=== PATIENT | female | born 1985 | race Caucasian/White ===

== ENCOUNTER 2017-03-22 13:26 | Emergency (ER) | payer OTHER, BC ==
[~2017-03-22] VITALS: Ht 167.6 cm; Wt 65.8 kg
[2017-03-22 13:48] VITALS: BP 118/71
--- NOTE | 2017-03-22 15:15 | RAD ---
Indication: Bilateral wrist pain shooting down both arms. No known injury. Technique: 3 views of each wrist are submitted for review. No comparison is available. Findings: There is no fracture or dislocation. There is no soft tissue swelling. Both lateral films are slightly obliqued limiting their utility. Impression: Negative for fracture.
--- NOTE | 2017-03-22 15:22 | PHYS DOC ---
Past Medical History Past Medical History: No Pertinent History Past Surgical History: No Surgical History Alcohol Use: None Drug Use: None Adult General Chief Complaint Chief Complaint: WRIST PAIN HPI HPI Patient is a 32 year old female who presents with bilateral wrist pain with radiation and intermittent numbness and tingling. The right wrist is worse than the left. The patient has not taken medication for this issue. Review of Systems Review of Systems Constitutional: Denies fever or chills [] Eyes: Denies change in visual acuity, redness, or eye pain [] HENT: Denies nasal congestion or sore throat [] Respiratory: Denies cough or shortness of breath [] Cardiovascular: No additional information not addressed in HPI [] GI: Denies abdominal pain, nausea, vomiting, bloody stools or diarrhea [] : Denies dysuria or hematuria [] Musculoskeletal: Denies back pain or joint pain [] Integument: Denies rash or skin lesions [] Neurologic: Denies headache, focal weakness or sensory changes [] Endocrine: Denies polyuria or polydipsia [] All other systems were reviewed and found to be within normal limits, except as documented in this note. Allergies Allergies Allergies Coded Allergies Type Severity Reaction Last Updated Verified Penicillins Allergy Intermediate "RASH" 03/22/17 No Physical Exam Physical Exam Constitutional: Well developed, well nourished, no acute distress, non-toxic appearance. [] Cardiovascular:Heart rate regular rhythm, no murmur [] Lungs & Thorax: Bilateral breath sounds clear to auscultation [] Skin: Warm, dry, no erythema, no rash. [] Extremities: tenderness to bilateral wrists, no cyanosis, no clubbing, ROM intact, no edema. [] Neurologic: Alert and oriented X 3, normal motor function, normal sensory function, no focal deficits noted. [] Psychologic: Affect normal, judgement normal, mood normal. [] Current Patient Data Vital Signs Vital Signs Date Time Temp Pulse Resp B/P (MAP) Pulse Ox O2 Delivery O2 Flow Rate FiO2 03/22/17 13:48 98.4 71 17 100 Room Air 98.4 EKG EKG [] Radiology/Procedures Radiology/Procedures []PATIENT: JOHNNY BUCHANAN ACCOUNT: [id number] : 1985 LOCATION: ER AGE: 32 SEX: F EXAM STATUS: REG ER ORD. PHYSICIAN: DELFINO HER APRN REASON: increasing pain PROCEDURE: WRIST BILAT 3V Indication: Bilateral wrist pain shooting down both arms. No known injury. Technique: 3 views of each wrist are submitted for review. No comparison is available. Findings: There is no fracture or dislocation. There is no soft tissue swelling. Both lateral films are slightly obliqued limiting their utility. Impression: Negative for fracture. DICTATED and SIGNED BY: VAUGHN ARVIZU MD DATE: 03/22/17 1510 CC: DELFINO HER APRN; NO PCP; NON,STAFF ~ Course & Med Decision Making Course & Med Decision Making Pertinent Labs and Imaging studies reviewed. (See chart for details) []1. Wrist pain You need to follow-up with your workman's comp physician for evaluation of carpal tunnel syndrome. You may use ibuprofen or Tylenol for pain. If worsening return to the ED. Dragon Disclaimer Dragon Disclaimer This electronic medical record was generated, in whole or in part, using a voice recognition dictation system. Departure Departure Referrals: NO PCP (PCP) DELFINO HER APRN Mar 22, 2017 15:22
== END 2017-03-22 15:29 | disposition home or self-care (01) ==
LOC: ER 13:26
DX: M25.531 Pain in right wrist (principal); M25.532 Pain in left wrist; R20.0 Anesthesia of skin; R20.2 Paresthesia of skin; Z88.0 Allergy status to penicillin
CPT/HCPCS: 73110; 99284

== ENCOUNTER 2019-05-01 11:59 | Emergency (ER) | payer BC, OTHER ==
[2019-05-01 12:25] VITALS: BP 122/70
[2019-05-01] MEDS ORDERED: METH4TAB2 PO (13:22)
[2019-05-01] MEDS ORDERED: ALBU2.5V8 INH (13:22)
[2019-05-01] MEDS ORDERED: BENZ100C PO (13:22)
--- NOTE | 2019-05-01 13:23 | PHYS DOC ---
Past Medical History Past Medical History: Other Additional Past Medical Histor: ADHD Past Surgical History: No Surgical History Additional Information: 1 PACK/DAY Alcohol Use: None Drug Use: None Adult General Chief Complaint Chief Complaint: COUGH HPI HPI Patient is a 34 year old female who presents with cough 5 days and states after she coughs she feels short of breath. She states she gets hot flashes. She denies fever. States she is taking NyQuil couple times. She states she smokes a pack a day. She denies any past medical history. Review of Systems Review of Systems Respiratory: cough or shortness of breath [] All other systems were reviewed and found to be within normal limits, except as documented in this note. Allergies Allergies Allergies Coded Allergies Type Severity Reaction Last Updated Verified Penicillins Allergy Intermediate "RASH" 03/22/17 No Physical Exam Physical Exam Constitutional: Well developed, well nourished, no acute distress, non-toxic appearance. [] HENT: Normocephalic, atraumatic, bilateral external ears normal, oropharynx moist, no oral exudates, nose normal. Throat red with post nasal drip. [] Eyes: PERRLA, EOMI, conjunctiva normal, no discharge. [] Neck: Normal range of motion, no tenderness, supple, no stridor. [] Cardiovascular:Heart rate regular rhythm, no murmur [] Lungs & Thorax: Bilateral breath sounds clear to auscultation [] Abdomen: Bowel sounds normal, soft, no tenderness, no masses, no pulsatile masses. [] Skin: Warm, dry, no erythema, no rash. [] Back: No tenderness, no CVA tenderness. [] Extremities: No tenderness, no cyanosis, no clubbing, ROM intact, no edema. [] Neurologic: Alert and oriented X 3, normal motor function, normal sensory function, no focal deficits noted. [] Psychologic: Affect normal, judgement normal, mood normal. [] Current Patient Data Vital Signs Vital Signs Date Time Temp Pulse Resp B/P (MAP) Pulse Ox O2 Delivery O2 Flow Rate FiO2 05/01/19 12:25 98.5 91 18 122/70 (87) 98 Room Air 98.5 EKG EKG [] Radiology/Procedures Radiology/Procedures [] Course & Med Decision Making Course & Med Decision Making Vital signs within normal limits. Alert and oriented. Speaks in full clear sentences. Ambulatory with a steady gait. Skin pink warm and dry. Throat is reddened with postnasal drainage but there is no swelling or exudates. Bilateral tympanic White. Lungs are clear to auscultation in all lobes. She denies chest pain, nausea, vomiting, diarrhea, fever, nasal congestion, abdominal pain, dizziness, headache, visual changes, weakness, numbness or tingling. Patient is given a Medrol Dosepak, Tessalon Perles and albuterol in the emergency room. [] Dragon Disclaimer Dragon Disclaimer This electronic medical record was generated, in whole or in part, using a voice recognition dictation system. Departure Departure Impression: Primary Impression: Cough Additional Impression: Shortness of breath Disposition: HOME, SELF-CARE Condition: STABLE Referrals: NO PCP (PCP) Patient Instructions: Bronchitis, [id number], Cough, Adult Additional Instructions: Follow-up with primary care provider. Drink plenty of fluids. Stop smoking. Take medication as prescribed. Scripts Benzonatate (TESSALON PERLE) 100 Mg Capsule 1 CAP PO TID, #30 CAP Prov: FLORENTINO MIGUEL APRN 05/01/19 Albuterol Sulfate (PROAIR HFA INHALER) 8.5 Gm Hfa.aer.ad 1 PUFF INH PRN Q6HRS PRN for SHORTNESS OF BREATH, #1 INHALER 0 Refills Prov: FLORENTINO MIGUEL APRN 05/01/19 Methylprednisolone (MEDROL) 4 Mg Tab.ds.pk 1 PKG PO UD, #1 PKG Prov: FLORENTINO MIGUEL APRN 05/01/19 Problem Qualifiers FLORENTINO MIGEUL APRN May 01, 2019 13:23
== END 2019-05-01 13:31 | disposition home or self-care (01) ==
LOC: ER 11:59
DX: R05 Cough (principal); R06.02 Shortness of breath; F90.9 Attention-deficit hyperactivity disorder, unspecified type; F17.200 Nicotine dependence, unspecified, uncomplicated
CPT/HCPCS: 99283